=== PATIENT | female | born 1955 | race Caucasian/White ===

== ENCOUNTER 2020-07-16 16:16 | Emergency (ER) | payer OTHER ==
[~2020-07-16 16:16] MED LIST: 24HOUR ALLERGY10 MG PO; CALTRATE 600+D1 EAC2 PO; CARDIZEM CD120 MG PO; COZAAR100 MG PO; CRESTOR10 M1 PO; DICLOFENAC SODI75 MG PO; FLEXERIL10 MG PO; FLOVENT HF120 PUFFS/; HCTZ25 MG PO; HUMALOG; IBUPROFEN800 MG PO; KLOR-CON 1010 MEQ PO; MEGACE40 MG PO; METFORMIN HCL1000 M1 PO; NEURONTIN300 MG PO; PERCOCET 5-3251 EACH PO; PRILOSEC20 MG PO; ROBAXIN750 MG PO; SERTRALINE HCL100 MG PO; SINGULAIR10 MG PO; TANDEM DUAL AC106 MG PO; TRESIBA FL200 UNIT/1 SC; VENTOLIN HFA IN18 GM INH; VICTOZA 3-0.6 MG/0.1 SC; VICTOZA SC; ZYLOPRIM300 MG PO; [UNRECOGNIZED DRUG - CODE]
== END 2020-07-16 20:33 | disposition home or self-care (01) ==
LOC: FER 16:16
DX: S80.02XA Contusion of left knee, initial encounter (principal); S50.02XA Contusion of left elbow, initial encounter; S00.83XA Contusion of other part of head, initial encounter; I10 Essential (primary) hypertension; E11.9 Type 2 diabetes mellitus without complications; Z88.8 Allergy status to other drugs, medicaments and biological substances; Z95.1 Presence of aortocoronary bypass graft; W17.89XA Other fall from one level to another, initial encounter; Y92.009 Unspecified place in unspecified non-institutional (private) residence as the place of occurrence of the external cause
CPT/HCPCS: 70450; 70486; 72125; 73070; 73564

== ENCOUNTER 2020-11-13 09:54 | Emergency (ER) | payer OTHER ==
[2020-11-13 10:42] LABS: BASOPHIL 0.3 % (0-2); EOSINOPHIL 0.9 % (0-5); HCT 40.7 % (37.0-47.0); HGB 13.5 g/dl (12.5-16.0); LYMPHOCYTE 15.2 % (15-48); MCH 30.1 pg (25.0-31.0); MCHC 33.2 g/dL (32.0-36.0); MCV 90.8 fL (78.0-100.0); MONOCYTE 7.9 % (0-12); NEUTROPHIL 74.4 % (41-80); NRBC 0; PLT 208 K/uL (150-400); RBC 4.48 M/uL (4.20-5.40); RDW 13.7 % (11.5-14.0); WBC 6.9 K/uL (4.0-10.5)
[2020-11-13 10:50] LABS: ALBUMIN 3.4 g/dL (3.4-5.0); BILIRUBIN - TOTAL 0.4 mg/dL (0.2-1.0); BUN/CREAT RATIO (CALC) 34.7 RATIO; CREATININE 0.49 mg/dL (0.51-0.95); GLOBULIN (CALCULATION) 2.9 g/dL; MAGNESIUM 1.9 mg/dL (1.8-2.4); TOTAL PROTEIN 6.3 g/dL (6.4-8.2)
[2020-11-13 10:55] LABS: PRO-BNP 232 pg/mL (<125)
[2020-11-13 10:57] LABS: LACTIC ACID 1.8 mmol/L (0.4-1.9)
[2020-11-13 11:09] LABS: D-DIMER 0.41 ug/mLFEU (0.00-0.41); INR 1.04 (0.9-1.2)
== END 2020-11-13 13:12 | disposition home or self-care (01) ==
LOC: FER 09:54
PROVIDERS: Emergency Medicine
DX: R06.00 Dyspnea, unspecified (principal); R60.9 Edema, unspecified; I21.4 Non-ST elevation (NSTEMI) myocardial infarction; Z20.822 Contact with and (suspected) exposure to COVID-19
CPT/HCPCS: 36415; 80053; 83605; 83735; 83880; 84145; 84484; 85025; 85379; 85610; 85730; 87040; 93005; J1940; U0002

== ENCOUNTER 2021-10-31 19:34 | Emergency (ER) | payer OTHER ==
[2021-10-31 20:54] LABS: BASOPHIL 0.3 % (0-2); EOSINOPHIL 0.3 % (0-7); HCT 45.5 % (37.0-47.0); LYMPHOCYTE 10.4 % (15-48); MCH 29.7 pg (25.0-31.0); MCV 90.1 fL (78.0-100.0); MONOCYTE 6.7 % (0-12); MPV 9.1 fL (6.0-9.5); NRBC 0; PLT 253 K/uL (150-400); RBC 5.05 M/uL (4.20-5.40); RDW 13.4 % (11.5-14.0); WBC 7.9 K/uL (4.0-10.5)
[2021-10-31 20:54] LABS: BILIRUBIN 1+ mg/dL (NEGATIVE); BLOOD 3+ Ery/uL (NEGATIVE); CLARITY CLEAR (CLEAR); COLOR YELLOW (YELLOW); GLUCOSE (U) TRACE mg/dL (NORMAL); LEUKOCYTES 3+ Leu/uL (NEGATIVE); NITRITE POSITIVE (NEGATIVE); PROTEIN 2+ mg/dL (NEGATIVE); pH 6.5 (5.0-9.0)
[2021-10-31 21:00] LABS: BACTERIA 4+; URINARY WBC TNTC
[2021-10-31 21:35] LABS: ALBUMIN 3.6 g/dL (3.4-5.0); ALKALINE PHOSHATASE 72 U/L (46-116); ALT 22 U/L (14-59); AST 17 U/L (15-37); BILIRUBIN - TOTAL 0.7 mg/dL (0.2-1.0); BUN 11 mg/dL (7-18); C-REACTIVE PROTEIN < 0.20 mg/dL (<=0.90); CHLORIDE 98 mmol/L (98-107); CO2 (BICARBONATE) 32 mmol/L (21-32); CREATININE 0.58 mg/dL (0.51-0.95); GLOBULIN (CALCULATION) 3.2 g/dL; GLUCOSE 296 mg/dL (74-106); LIPASE 56 U/L (73-393); MAGNESIUM 1.6 mg/dL (1.8-2.4); POTASSIUM 3.7 mmol/L (3.5-5.1); TOTAL PROTEIN 6.8 g/dL (6.4-8.2)
[2021-10-31 21:54] LABS: CPK 23 U/L (26-192)
[2021-10-31] MEDS ORDERED: CEPHALEXIN500 M1 PO (22:25)
[2021-10-31] MEDS ORDERED: MAG-OXIDE 400M400 MG PO (22:26)
== END 2021-11-01 | disposition home or self-care (01) ==
LOC: FER 19:34
PROVIDERS: Internal Medicine
DX: M62.830 Muscle spasm of back (principal); M62.838 Other muscle spasm; N39.0 Urinary tract infection, site not specified; E83.42 Hypomagnesemia; E11.9 Type 2 diabetes mellitus without complications; I10 Essential (primary) hypertension; Z88.8 Allergy status to other drugs, medicaments and biological substances; Z79.4 Long term (current) use of insulin; Z79.899 Other long term (current) drug therapy
CPT/HCPCS: 36415; 80053; 81001; 82550; 83690; 83735; 84145; 84484; 85025; 86140; 87088; 93005; J0696; J3475

== ENCOUNTER 2021-12-09 15:13 | Emergency (ER) | payer OTHER ==
[~2021-12-09 15:13] MED LIST changes: +CEPHALEXIN500 M1 PO; +MAG-OXIDE 400M400 MG PO
[2021-12-09 16:09] LABS: BASOPHIL 0.2 % (0-2); EOSINOPHIL 0.2 % (0-7); HCT 43.4 % (37.0-47.0); HGB 14.4 g/dl (12.5-16.0); MCH 29.4 pg (25.0-31.0); MCHC 33.2 g/dL (32.0-36.0); MCV 88.8 fL (78.0-100.0); MONOCYTE 7.6 % (0-12); NEUTROPHIL 76.7 % (41-80); NRBC 0; PLT 188 K/uL (150-400); RBC 4.89 M/uL (4.20-5.40); RDW 13.4 % (11.5-14.0); WBC 6.2 K/uL (4.0-10.5)
[2021-12-09 16:31] LABS: BILIRUBIN - TOTAL 0.5 mg/dL (0.2-1.0); BUN/CREAT RATIO (CALC) 18.8 RATIO; CREATININE 0.48 mg/dL (0.51-0.95); GLOBULIN (CALCULATION) 2.7 g/dL; TOTAL PROTEIN 5.7 g/dL (6.4-8.2)
[2021-12-09] MEDS ORDERED: AMOXICILLIN875 MG PO (19:01)
[2021-12-09] MEDS ORDERED: NORCO 5-325 TA1 EACH PO (19:01)
== END 2021-12-09 19:40 | disposition home or self-care (01) ==
LOC: FER 15:13
PROVIDERS: Emergency Medicine
DX: S43.102A Unspecified dislocation of left acromioclavicular joint, initial encounter (principal); S51.012A Laceration without foreign body of left elbow, initial encounter; I10 Essential (primary) hypertension; E11.9 Type 2 diabetes mellitus without complications; Z79.4 Long term (current) use of insulin; Z88.8 Allergy status to other drugs, medicaments and biological substances; W01.0XXA Fall on same level from slipping, tripping and stumbling without subsequent striking against object, initial encounter; Y92.59 Other trade areas as the place of occurrence of the external cause
CPT/HCPCS: 36415; 70450; 72125; 73030; 73080; 80053; 84484; 85025; 93005; 96374; 96375; 96376; J1170; J2405

== ENCOUNTER 2022-01-18 23:31 | Emergency (ER) | payer OTHER ==
[~2022-01-18 23:31] MED LIST changes: +AMOXICILLIN875 MG PO; +NORCO 5-325 TA1 EACH PO
[2022-01-19 00:20] LABS: BASOPHIL 0.4 % (0-2); EOSINOPHIL 0.5 % (0-7); HCT 42.5 % (37.0-47.0); HGB 13.8 g/dl (12.5-16.0); LYMPHOCYTE 11.2 % (15-48); MCH 29.2 pg (25.0-31.0); MCHC 32.5 g/dL (32.0-36.0); MONOCYTE 8.4 % (0-12); MPV 8.9 fL (6.0-9.5); NEUTROPHIL 78.4 % (41-80); NRBC 0; PLT 232 K/uL (150-400); RBC 4.72 M/uL (4.20-5.40); RDW 14.2 % (11.5-14.0)
[2022-01-19 00:48] LABS: BUN/CREAT RATIO (CALC) 17.9 RATIO; CREATININE 0.56 mg/dL (0.51-0.95); POTASSIUM 3.3 mmol/L (3.5-5.1)
[2022-01-19] MEDS ORDERED: LASIX20 MG PO (04:19)
[2022-01-19] MEDS ORDERED: KEFLEX250 MG PO (04:19)
== END 2022-01-19 04:39 | disposition home or self-care (01) ==
LOC: FER 23:31
PROVIDERS: Emergency Medicine
DX: I87.2 Venous insufficiency (chronic) (peripheral) (principal); I10 Essential (primary) hypertension; E11.9 Type 2 diabetes mellitus without complications; Z79.4 Long term (current) use of insulin; Z88.8 Allergy status to other drugs, medicaments and biological substances
CPT/HCPCS: 36415; 71045; 80048; 83605; 83880; 84484; 85025; 93005; J0696; J1940; J7050

== ENCOUNTER 2022-02-03 13:01 | Emergency (ER) | payer OTHER ==
[~2022-02-03 13:01] MED LIST changes: +KEFLEX250 MG PO; +LASIX20 MG PO
[2022-02-03] MEDS ORDERED: NAPROSYN250 MG PO (15:51)
== END 2022-02-03 16:20 | disposition home or self-care (01) ==
LOC: FER 13:01
DX: S80.12XA Contusion of left lower leg, initial encounter (principal); S80.11XA Contusion of right lower leg, initial encounter; S09.90XA Unspecified injury of head, initial encounter; S00.03XA Contusion of scalp, initial encounter; S50.12XA Contusion of left forearm, initial encounter; S50.11XA Contusion of right forearm, initial encounter; M54.2 Cervicalgia; E11.9 Type 2 diabetes mellitus without complications; Z95.1 Presence of aortocoronary bypass graft; Z88.8 Allergy status to other drugs, medicaments and biological substances; W01.0XXA Fall on same level from slipping, tripping and stumbling without subsequent striking against object, initial encounter; Y92.89 Other specified places as the place of occurrence of the external cause
CPT/HCPCS: 70450; 72125; 73560; 73590